=== PATIENT | female | born 1950 | race Caucasian/White ===

== ENCOUNTER → 2016-10-21 | Outpatient (CLI) | payer BC, MEDICARE ==
--- NOTE | 2016-10-21 15:44 | US ---
EXAMINATION TYPE: US thyroid st tissue head/neck DATE OF EXAM: 10/21/2016 3:27 PM COMPARISON: NONE CLINICAL HISTORY: L[address] LY[address] felt enlarged neck nodule per patient GLAND SIZE: Right Lobe: 3.6 x 1.5 x 1.0 cm Overall Parenchyma: homogenous Left Lobe: 4.0 x 1.4 x0.9 cm Overall Parenchyma: homogeneous Isthmus Thickness: 0.2 cm NODULES RIGHT: # of nodules measured on right: 2 1. 0.4 X 0.3 x 0.4 cm hypoechoic cystic nodule at the lower pole with well-defined margins; . Thi s nodule is wider than tall and shows no intranodular vascularity. Prior size: no prior 2. 0.6 X 0.4 x 0.4 cm isoechoic solid nodule at the lower pole with well-defined margins; . This no dule is wider than tall and shows intranodular vascularity. Prior size: no prior LEFT: # of nodules measured on left: 0 ISTHMUS: # of nodules measured in the isthmus: 0 Findings: Bilateral neck scanned, no abnormal lymphadenopathy noted. Additional left neck imaging performed, no abnormality noted. IMPRESSION: Thyroid nodularity as noted.
--- NOTE | 2016-10-22 07:35 | BD ---
EXAMINATION TYPE: MG DEXA axial skeleton. DATE OF EXAM: 10/21/2016 3:42 PM COMPARISON: DEXA bone scan November 05, 2011. CLINICAL HISTORY: screening osteoporosis, postmenopausal female. Height: 5'9 Weight: 138 FRAX RISK QUESTIONS: Alcohol (3 or more units per day): no Family History (Parent hip fracture): no Glucocorticoids (More than 3mos): no (Ex: prednisone, prednisolone, methylprednisolone, dexamethasone, and hydrocortisone). History of Fracture in Adulthood: yes Secondary Osteoporosis: 1. Type 1 Diabetes: no 2. Hyperthyroidism: no 3. Menopause before 45: yes 4. Malnutrition: no 5. Chronic liver disease: no Rheumatoid Arthritis: no Current Tobacco Use: no RISK FACTORS HISTORY OF: Other Fractures since Age 49: When: 2004 Postmenopausal woman: MEDICATIONS: Additional Medications: Additional History: screening osteoporosis EXAM MEASUREMENTS: Bone mineral densitometry was performed using the [employer] System. Bone mineral density as measured about the Lumbar spine is: ----- L1-L4(G/cm2): 0.863 T Score Values are as follows: ----- L2: -3.2 ----- L3: -2.0 ----- L4: -3.0 ----- L1-L4: -2.6 Bone mineral density has: Increased 1.4% since study of: 11/05/2011 Bone mineral density about the R hip (g/cm2): 0.759 Bone mineral density about the L hip (g/cm2): 0.758 T Score values are as follows: -----R Neck: -2.0 -----L Neck: -2.0 -----R Intertrochanter: -2.0 -----L Intertrochanter: -2.1 Bone mineral density has: Decreased -3.1% since study of: 11/05/2011 IMPRESSION: Osteoporosis (T Score less than -2.5) as noted by T Score values at the : Remains present overall in the low back. Bone density fairly stable from prior. There is increased fracture risk and therapy is usually indicated based on age. Re-Screen 1-2 years. NOTE: T-SCORE=SD OF THE YOUNG ADULT MEAN.
--- NOTE | 2016-10-22 07:59 | MM ---
Reason for exam: screening (asymptomatic). Last mammogram was performed 4 years and 11 months ago. Physical Findings: A clinical breast exam by your physician is recommended on an annual basis and results should be correlated with mammographic findings. MG Screening Mammo w CAD Bilateral CC and MLO view(s) were taken. Prior study comparison: November 05, 2011, bilateral digital screening mammo w/CAD. October 28, 2007, bilateral digital screening mammogram. The breast tissue is heterogeneously dense. This may lower the sensitivity of mammography. There is no discrete abnormality. ASSESSMENT: Negative, BI-RAD 1 RECOMMENDATION: Routine screening mammogram of both breasts in 1 year.
== END | disposition home or self-care (01) ==
LOC: RADMAMWWP 14:55
PROVIDERS: ATTEND Family Medicine
DX: Z12.31 Encounter for screening mammogram for malignant neoplasm of breast (principal); M81.0 Age-related osteoporosis without current pathological fracture; E04.2 Nontoxic multinodular goiter
CPT/HCPCS: 77080; 76536; G0202

== ENCOUNTER → 2017-11-09 | Outpatient (CLI) | payer BC, MEDICARE ==
--- NOTE | 2017-11-09 10:30 | US ---
EXAMINATION TYPE: US thyroid st tissue head/neck DATE OF EXAM: 11/09/2017 COMPARISON: US 2017 CLINICAL HISTORY: E04.1 Thyroid Nodule,. Thyroid nodules GLAND SIZE: Right Lobe: 3.5 x 1.2 x 1.3 cm Overall Parenchyma: homogenous Left Lobe: 3.4 x 1.1 x 1.1 cm Overall Parenchyma: homogeneous Isthmus Thickness: 0.2 cm NODULES RIGHT: # of nodules measured on right: 1 1. 0.7 X 0.5 x 0.6 cm hypoechoic solid nodule at the lower pole with well-defined margins. This nod ule is wider than tall and shows intranodular vascularity. Prior size: 0.6 x 0.4 x 0.4 cm 2. The previously seen 4 mm cystic nodule at the lower pole on the prior exam is not visualized on to day's examination. LEFT: # of nodules measured on left: 0 ISTHMUS: # of nodules measured in the isthmus: 0 Bilateral neck scanned, no evidence of lymphadenopathy. IMPRESSION: Minimal interval growth of the known right-sided solid thyroid nodule in comparison to exam of 017. Continued surveillance is recommended as this nodule remains subcentimeter and does not meet cri teria for biopsy at this time. The smaller previously noted 4 mm nodule is not visualized on today's examination.
--- NOTE | 2017-11-10 09:43 | MM ---
Reason for exam: screening (asymptomatic). Last mammogram was performed 1 year and 1 month ago. Physical Findings: A clinical breast exam by your physician is recommended on an annual basis and results should be correlated with mammographic findings. MG 3D Screening Mammo W/Cad Bilateral CC and MLO view(s) were taken. Prior study comparison: October 21, 2016, bilateral MG screening mammo w CAD. November 05, 2011, bilateral digital screening mammo w/CAD. The breast tissue is heterogeneously dense. This may lower the sensitivity of mammography. There is no discrete abnormality. No significant changes when compared with prior studies. ASSESSMENT: Negative, BI-RAD 1 RECOMMENDATION: Routine screening mammogram of both breasts in 1 year.
== END | disposition home or self-care (01) ==
LOC: RADUSWWP 08:57
PROVIDERS: ATTEND Family Medicine
DX: Z12.31 Encounter for screening mammogram for malignant neoplasm of breast (principal); E04.1 Nontoxic single thyroid nodule
CPT/HCPCS: 76536; 77063; 77067

== ENCOUNTER 2017-11-23 09:38 | Day surgery (SDC) | payer BC, MEDICARE ==
[2017-11-18 15:52] VITALS: BMI 18.8
[2017-11-23 10:53] VITALS: TEMP 97.8
[2017-11-23] MEDS ORDERED: LIDOCAINE 1% 20 ML VIAL (10MG/ML) FOR IV START INTRADERMA ONE (11:00)
[2017-11-23] MEDS: LACTATED RINGERS 1,000 ML IV SCH ×2 (11:01→12:01)
[2017-11-23] MEDS ORDERED: PROPOFOL 10 MG/ML 20 ML VIAL IV ONE (12:03)
--- NOTE | 2017-11-23 12:32 | P.PCN ---
Date of Procedure: 11/23/17 Procedure(s) Performed: Procedure: Total colonoscopy. Preoperative diagnosis: Screening for neoplasia, patient has history of polyps. Postoperative diagnosis: Sigmoid diverticulosis with no evidence of acute diverticulitis, strictures, polyps or cancer. Preparation: HalfLytely prep. Sedation: Was provided by anesthesia. Brief clinical history: The patient is a 66-year-old female who is scheduled for this evaluation for screening for neoplasia. The patient had a colonoscopy around 10 years ago and she had polyps removed. She has no abdominal complaints , bleeding or anemia. Procedure: With the patient on her left lateral decubitus position and after informed consent and adequate sedation, the perianal area was inspected and it did not show any fissures or fistulas. There were no masses felt on digital rectal examination. The Olympus CFQ 160L video colonoscope was then inserted in the rectum in the usual fashion and advanced to the cecum. There were several diverticular orifices seen scattered in the sigmoid with no evidence of acute diverticulitis or strictures. No polyps or tumors were seen or any other pathology. I retroflexed the endoscope in the rectum before the endoscope was withdrawn. The patient tolerated the procedure well. Plan: The patient was reassured. Discussed dietary measures. She will follow- up with you as planned and I recommended repeat exam in 5 years.
[2017-11-23 12:44] VITALS: RESP 16
[2017-11-23 13:13] VITALS: BP 111/56; PULSE 66
== END 2017-11-23 13:12 | disposition home or self-care (01) ==
LOC: ORWHC2ENDO 09:38
DX: Z12.11 Encounter for screening for malignant neoplasm of colon (principal); K57.30 Diverticulosis of large intestine without perforation or abscess without bleeding; Z86.010 Personal history of colon polyps; E78.5 Hyperlipidemia, unspecified; Z88.0 Allergy status to penicillin; Z87.891 Personal history of nicotine dependence
CPT/HCPCS: J2704; G0105; 45378

== ENCOUNTER → 2018-12-23 | Outpatient (CLI) | payer BC, MEDICARE ==
--- NOTE | 2018-12-23 19:27 | BD ---
EXAMINATION TYPE: Axial Bone Density DATE OF EXAM: 12/23/2018 COMPARISON: CLINICAL HISTORY: 67 YR OLD FEMALE....ICD-10 CODE: Z13.820 OSTEOPOROSIS SCREENING Height: 67 Weight: 128 FRAX RISK QUESTIONS: History of Fracture in Adulthood: YES Current Tobacco Use: STOPPED OVER 10 YRS AGO RISK FACTORS HISTORY OF: HX OF TOE FXS AND LT ANKLE AFTER AGE 49 Active: YES Diet low in dairy products/other sources of calcium: A BIT LOW Postmenopausal woman: YES AT AGE 51 Lost more than 2 inches in height since high school: YES MEDICATIONS: Additional Medications: CALCIUM AND D3, REFLUX MEDS, Additional History: HEART BURN, EXAM MEASUREMENTS: Bone mineral densitometry was performed using the [employer] System. Bone mineral density as measured about the Lumbar spine is: ----- L1-L4(G/cm2): 0.855 T Score Values are as follows: ----- L1: -2.7 ----- L2: -2.9 ----- L3: -2.3 ----- L4: -3.0 ----- L1-L4: -2.7 Bone mineral density has: Decreased -0.2% since study of: 10.21.2016 Bone mineral density about the R hip (g/cm2): 0.786 Bone mineral density about the L hip (g/cm2): 0.786 T Score values are as follows: -----R Neck: -1.9 -----L Neck: -1.8 -----R Total: -1.8 -----L Total: -1.8 Bone mineral density has: Increased 4.2% since study of: 10.21.2016 FRAX%s: THERE IS A 15.8% CHANCE FOR A MAJOR OSTEOPOROTIC FX AND A 2.9% FOR HIP....PROBABILITY OF F X IN 10 YRS TIME IMPRESSION: Osteoporosis (T Score less than -2.5). There is increased fracture risk and therapy is usually indicated based on age. Re-Screen 1-2 years. NOTE: T-SCORE=SD OF THE YOUNG ADULT MEAN.
--- NOTE | 2018-12-24 13:29 | MM ---
Reason for exam: screening (asymptomatic). Last mammogram was performed 1 year and 1 month ago. Physical Findings: A clinical breast exam by your physician is recommended on an annual basis and results should be correlated with mammographic findings. MG 3D Screening Mammo W/Cad Bilateral CC and MLO view(s) were taken. Prior study comparison: November 09, 2017, bilateral MG 3d screening mammo w/cad. October 21, 2016, bilateral MG screening mammo w CAD. The breast tissue is heterogeneously dense. This may lower the sensitivity of mammography. There is no discrete abnormality. No significant changes when compared with prior studies. ASSESSMENT: Negative, BI-RAD 1 RECOMMENDATION: Routine screening mammogram of both breasts in 1 year.
== END | disposition home or self-care (01) ==
LOC: RADMAMWWP 08:21
PROVIDERS: ATTEND Family Medicine
DX: Z12.31 Encounter for screening mammogram for malignant neoplasm of breast (principal); M81.0 Age-related osteoporosis without current pathological fracture
CPT/HCPCS: 77063; 77067; 77080